=== PATIENT | female | born 1990 | race African-American/Black ===

== ENCOUNTER 2024-08-08 01:33 | Emergency (ER) | payer BC ==
[2024-08-08 01:51] VITALS: BP 130/71; PULSE 75; RESP 18; TEMP 98.8; BMI 32.9
[2024-08-08] MEDS ORDERED: ACETAMINOPHEN 325 MG TABLET (FP) ONE (02:39)
[2024-08-08] MEDS: ACETAMINOPHEN 500 MG TABLET (FP) PO ONE (02:41)
== END 2024-08-08 05:08 | disposition home or self-care (01) ==
LOC: JER 01:33
DX: M25.551 Pain in right hip (principal); W01.0XXA Fall on same level from slipping, tripping and stumbling without subsequent striking against object, initial encounter
CPT/HCPCS: 99283-25

== ENCOUNTER 2024-08-19 00:41 | Emergency (ER) | payer OTHER ==
[2024-08-19 00:58] VITALS: BP 103/70; PULSE 77; RESP 18; TEMP 98.8; BMI 32.9
== END 2024-08-19 01:35 | disposition home or self-care (01) ==
LOC: JER 00:41
DX: M79.674 Pain in right toe(s) (principal); M53.3 Sacrococcygeal disorders, not elsewhere classified; W01.0XXA Fall on same level from slipping, tripping and stumbling without subsequent striking against object, initial encounter; Y92.480 Sidewalk as the place of occurrence of the external cause; Y93.01 Activity, walking, marching and hiking
CPT/HCPCS: 99283-25